=== PATIENT | female | born 1990 | race Hispanic/Latino ===

== ENCOUNTER 2017-07-11 00:25 | Emergency (ER) | payer MEDICAID ==
[~2017-07-11 00:25] MED LIST: PREN-196 PO
[2017-07-11] MEDS ORDERED: HYDROXYZINE HCL 25 MG TABLET ONE (00:51)
[2017-07-11 01:33] LABS: CREATININE 1.1 mg/dL (0.5-1.5); POTASSIUM 3.5 mmol/L (3.5-5.1)
[2017-07-11 01:47] LABS: BASOPHILS % (AUTO) 0.8 % (0.0-5.0); EOSINOPHILS % (AUTO) 2.8 % (0.0-8.0); LYMPHOCYTES % (AUTO) 40.2 % (21.0-51.0); MEAN CORPUSCULAR HEMOGLOBIN 27.5 pg (27.0-33.0); MEAN CORPUSCULAR HGB CONC 33.1 g/dL (32.0-36.0); MONOCYTES % (AUTO) 7.1 % (3.0-13.0); NEUTROPHILS % (AUTO) 49.1 % (40.0-77.0); PLATELET COUNT (AUTO) 263 K/uL (130-400); RED CELL DISTRIBUTION WIDTH 14.2 % (11.0-15.5); WHITE BLOOD COUNT (AUTO) 7.4 K/uL (4.8-10.8)
[2017-07-11 01:52] LABS: AMPHET/METH SCREEN,URINE NEGATIVE (NEGATIVE); BARBITURATE SCREEN, URINE NEGATIVE (NEGATIVE); BENZODIAZEPINES SCREEN,URINE NEGATIVE (NEGATIVE); CANNABINOID SCREEN,URINE POSITIVE (NEGATIVE); COCAINE SCREEN,URINE POSITIVE (NEGATIVE); OPIATE SCREEN,URINE NEGATIVE (NEGATIVE); PHENCYCLIDINE SCREEN,URINE NEGATIVE (NEGATIVE)
== END 2017-07-11 02:48 | disposition home or self-care (01) ==
LOC: EDH 00:25
DX: F14.10 Cocaine abuse, uncomplicated (principal); R20.0 Anesthesia of skin; Z98.890 Other specified postprocedural states
CPT/HCPCS: 36415; 80048; 80305; 84702; 85025

== ENCOUNTER 2018-04-04 15:01 | Emergency (ER) | payer MEDICAID | END 2018-04-04 15:35 | disposition home or self-care (01) | LOC: EDH 15:01 | DX: O26.891 Other specified pregnancy related conditions, first trimester (principal); R10.2 Pelvic and perineal pain; Z3A.12 12 weeks gestation of pregnancy; Z87.891 Personal history of nicotine dependence | CPT/HCPCS: 99281 ==

== ENCOUNTER 2021-02-02 08:57 | Emergency (ER) | payer MEDICARE ==
[~2021-02-02] VITALS: Ht 154.9 cm; Wt 51.3 kg
[2021-02-02 09:07] VITALS: BP 91/72
[2021-02-02] MEDS: ONDANSETRON ODT 4MG TAB SL ONE (09:27)
[2021-02-02] MEDS: 0.9%NACL 1000ML 1,000 ML IV STA (09:35)
[2021-02-02] MEDS: ONDANSETRON ODT 4MG TAB ONE (09:39)
[2021-02-02] MEDS ORDERED: ONDA4TAB4 PO (09:57)
[2021-02-02] MEDS ORDERED: DIPH1TAB PO (09:57)
[2021-02-02 09:58] VITALS: BP 103/65
[2021-02-02] MEDS: DIPHENOXYLATE HCL/ATROPINE 2.5/0.025 MG TAB PO ONE (11:01)
== END 2021-02-02 10:53 | disposition home or self-care (01) ==
LOC: EDH 08:57
DX: A05.9 Bacterial foodborne intoxication, unspecified (principal); F17.200 Nicotine dependence, unspecified, uncomplicated; Z79.899 Other long term (current) drug therapy
CPT/HCPCS: 96360; 99283; J7030

== ENCOUNTER 2023-03-31 11:11 | Emergency (ER) | payer OTHER, MEDICARE ==
[~2023-03-31] VITALS: Ht 154.9 cm; Wt 52.6 kg
[~2023-03-31 11:11] MED LIST changes: +DIPH1TAB PO; +ONDA4TAB4 PO
[2023-03-31 12:38] LABS: APPEARANCE,URINE CLEAR (CLEAR); BILIRUBIN,URINE NEGATIVE (NEGATIVE); GLUCOSE, URINE (UA) NEGATIVE (NEGATIVE); KETONES,URINE NEGATIVE (NEGATIVE); LEUKOCYTE ESTERASE ,URINE 25 Leu/uL (NEGATIVE); NITRATE,URINE NEGATIVE (NEGATIVE); PROTEIN,URINE NEGATIVE (NEGATIVE); UROBILINOGEN,URINE 0.2 mg/dL (0.2-1.0)
[2023-03-31 12:41] LABS: HCG,QUALITATIVE URINE POSITIVE (NEGATIVE)
[2023-03-31 12:44] LABS: ADD UA MICROSCOPIC YES; COLOR,URINE YELLOW (YELLOW)
[2023-03-31 12:45] LABS: BACTERIA,URINE RARE /HPF (None Seen); MUCUS,URINE RARE LPF (None Seen); SQUAMOUS EPITHELIAL CELL,UR FEW /HPF (0-2)
[2023-03-31 13:20] LABS: BASOPHILS # (AUTO) 0.02 K/uL (0.00-0.20); BASOPHILS % (AUTO) 0.2 % (0.0-5.0); EOSINOPHILS # (AUTO) 0.02 K/uL (0.00-0.70); EOSINOPHILS % (AUTO) 0.2 % (0.0-8.0); HEMATOCRIT 43.6 % (36-48); IMMATURE GRANULOCYTE ABSOLUTE 0.03 K/uL (0-1); LYMPHOCYTES # (AUTO) 1.7 K/uL (1.0-4.8); LYMPHOCYTES % (AUTO) 19.9 % (21.0-51.0); MEAN CORPUSCULAR HEMOGLOBIN 29.2 pg (27.0-33.0); MEAN CORPUSCULAR VOLUME 88.4 fL (79-99); MONOCYTES # (AUTO) 0.6 K/uL (0.1-1.0); MONOCYTES % (AUTO) 7.6 % (3.0-13.0); NEUTROPHILS # (AUTO) 5.9 K/uL (1.8-7.7); NEUTROPHILS % (AUTO) 71.7 % (40.0-77.0); PLATELET COUNT (AUTO) 284 K/uL (130-400); RED BLOOD CELL COUNT(AUTO) 4.93 MIL/uL (4.00-5.50); RED CELL DISTRIBUTION WIDTH 12.4 % (11.0-15.5); WHITE BLOOD COUNT (AUTO) 8.3 K/uL (4.8-10.8)
[2023-03-31 13:25] LABS: CREATININE 0.8 mg/dL (0.5-1.5); POTASSIUM 3.2 mmol/L (3.5-5.1)
[2023-03-31 13:30] LABS: ALBUMIN 4.2 g/dL (3.5-5.0); BILIRUBIN,TOTAL 1.3 mg/dL (0.2-1.0); TOTAL PROTEIN, SERUM 8.1 g/dL (6.0-8.3)
[2023-03-31] MEDS ORDERED: CEPH500T PO (16:17)
[2023-03-31 16:36] VITALS: BP 109/74; PULSE 70; RESP 17; O2SAT 98
== END 2023-03-31 16:41 | disposition home or self-care (01) ==
LOC: EDH 11:11
DX: O23.41 Unspecified infection of urinary tract in pregnancy, first trimester (principal); N39.0 Urinary tract infection, site not specified; R10.2 Pelvic and perineal pain; F17.200 Nicotine dependence, unspecified, uncomplicated; Z79.899 Other long term (current) drug therapy; Z3A.01 Less than 8 weeks gestation of pregnancy; Z98.890 Other specified postprocedural states
CPT/HCPCS: 36415; 76801; 80053; 81001; 81025; 84702; 85025

== ENCOUNTER 2024-01-08 08:33 | Emergency (ER) | payer OTHER, MEDICARE ==
[~2024-01-08] VITALS: Ht 154.9 cm; Wt 52.6 kg
[~2024-01-08 08:33] MED LIST changes: +CEPH500T PO
[2024-01-08] MEDS: LIDOCAINE 5% TOPICAL PATCH TP ONE (10:21)
[2024-01-08] MEDS: morPHINE 2 MG SYG IM ONE (10:21)
[2024-01-08] MEDS: ORPHENADRINE 60MG/2ML IM ONE (10:21)
[2024-01-08] MEDS ORDERED: CYCL-309 PO (12:44)
[2024-01-08] MEDS ORDERED: IBUP-2070 PO (12:44)
[2024-01-08 12:53] VITALS: BP 110/68; PULSE 66; RESP 18; TEMP 98.4; O2SAT 98
== END 2024-01-08 12:58 | disposition home or self-care (01) ==
LOC: EDH 08:33
DX: M43.22 Fusion of spine, cervical region (principal); M62.838 Other muscle spasm; F12.99 Cannabis use, unspecified with unspecified cannabis-induced disorder; F17.200 Nicotine dependence, unspecified, uncomplicated; Z79.899 Other long term (current) drug therapy; Z98.890 Other specified postprocedural states
CPT/HCPCS: 72125; 96372; J2270; J2360